=== PATIENT | female | born 1960 | race Caucasian/White ===

== ENCOUNTER → 2020-08-23 | Outpatient (CLI) | payer MEDICARE, MEDICAID ==
--- NOTE | 2020-08-23 18:21 | KCIC ---
EXAM: XR CHEST 2V INDICATION: Reason: COPD, cough, past smoker, quit 2011. / Spl. Instructions: / History: . TECHNIQUE: PA and lateral views COMPARISON: None FINDINGS: The heart size is normal. The great vessels appear unremarkable. There is no hilar or mediastinal mass. Calcified left hilar lymph nodes are incidentally noted. The lungs are hyperinflated and hyperlucent of the apices in a pattern compatible with underlying [employer] but otherwise are clear. There is no pleural effusion or pneumothorax. There are no significant osseous abnormalities. IMPRESSION: Evidence of COPD and prior granulomatous disease with no active cardiopulmonary disease. Electronically signed by: Salinas Gastelum MD (08/23/2020 6:18 PM) [id number]
== END ==
LOC: KCIC 14:07
PROVIDERS: ATTEND Family Medicine
DX: J44.9 Chronic obstructive pulmonary disease, unspecified (principal); Z79.52 Long term (current) use of systemic steroids; Z87.891 Personal history of nicotine dependence
CPT/HCPCS: 71046

== ENCOUNTER → 2020-09-01 | Outpatient (CLI) | payer MEDICARE, MEDICAID ==
--- NOTE | 2020-09-01 13:48 | KCIC ---
CT head without contrast dated 09/01/2020. No comparison available. CLINICAL INDICATION: Memory loss. Headache. Sinusitis. TECHNIQUE: Contiguous axial imaging the head was performed from skull base to vertex. No contrast administered. One or more of the following individualized dose reduction techniques were utilized for this examinat ion: 1. Automated exposure control 2. Adjustment of the mA and/or kV according to patient size 3. Use of iterative reconstruction technique. FINDINGS: Ventricles and sulci are mildly prominent for age. No midline shift or mass effect. Mild patchy low d ensity in the deep/subcortical periventricular white matter. No hemorrhage or extra-axial collection. Posterior fossa and brainstem unremarkable. There is subtotal opacification of the left maxillary sinus. Visualized paranasal sinuses and mastoid air cells are otherwise clear. No apparent calvarial abnormality. IMPRESSION: 1. No evidence of acute intracranial hemorrhage or mass. 2. Mild chronic small vessel ischemic changes and atrophy. 3. High density subtotal opacification of the left maxillary sinus. Consider chronic inspissated secr etions. Fungal sinusitis not excluded. Electronically signed by: Tho Reich MD (09/01/2020 1:46 PM) [id number]
== END ==
LOC: KCIC CT 12:41
PROVIDERS: ATTEND Family Medicine
DX: J32.9 Chronic sinusitis, unspecified (principal); R41.3 Other amnesia; H92.03 Otalgia, bilateral; G89.29 Other chronic pain
CPT/HCPCS: 70450

== ENCOUNTER → 2020-12-01 | Outpatient (CLI) | payer MEDICARE, MEDICAID ==
[~2020-12-01] MED LIST: IV NORMAL SALINE 1000ML BAG 1,000 ML IV ONE
[2020-12-01 13:38] VITALS: BP 119/77
== END | disposition home or self-care (01) ==
LOC: OPS 13:17
PROVIDERS: ATTEND Family Medicine
DX: R11.2 Nausea with vomiting, unspecified (principal); J44.9 Chronic obstructive pulmonary disease, unspecified; G89.29 Other chronic pain; Z79.52 Long term (current) use of systemic steroids; Z87.891 Personal history of nicotine dependence
CPT/HCPCS: 96360; 96361; J7030

== ENCOUNTER → 2021-01-11 | Outpatient (CLI) | payer MEDICARE, MEDICAID ==
[2020-12-01 13:38] VITALS: BP 119/77
--- NOTE | 2021-01-11 12:52 | KCIC ---
EXAM: Right ankle, 2 views. HISTORY: Pain. Bruising. COMPARISON: None. FINDINGS: 2 views of the right ankle are obtained. There is no fracture, dislocation or subluxation. The ankle mortise intact. There is no osteochondral lesion. There is mild soft tissue swelling. IMPRESSION: No acute osseous finding. Soft tissue swelling. Electronically signed by: Jovanna Conley MD (01/11/2021 12:50 PM) [id number]
== END ==
LOC: KCIC 11:46
PROVIDERS: ATTEND Family Medicine
DX: M79.89 Other specified soft tissue disorders (principal); M25.571 Pain in right ankle and joints of right foot; J44.1 Chronic obstructive pulmonary disease with (acute) exacerbation; R58 Hemorrhage, not elsewhere classified; Z68.41 Body mass index [BMI] 40.0-44.9, adult
CPT/HCPCS: 73600